=== PATIENT | female | born 1935 | race Caucasian/White ===

== ENCOUNTER 2016-11-30 15:24 | Outpatient (CLI) | payer OTHER ==
--- NOTE | 2016-11-30 15:51 | DIAGNOSTIC IMAGING REPORT ---
PROCEDURE: XR CHEST 2 VIEW INDICATION: COPD DISEASE, TOBACCO ABUSE TECHNIQUE: PA and lateral view. COMPARISON: None. FINDINGS: Mild hyperinflation. Lungs are clear. Heart size, mediastinum and pulmonary vessels are normal. Mildly tortuous aorta. Moderate degenerative changes of the spine. IMPRESSION: 1. Hyperinflation consistent with COPD 2. No acute changes
== END 2016-11-30 23:00 | disposition home or self-care (01) ==
LOC: XR SRH 15:24
DX: J44.9 Chronic obstructive pulmonary disease, unspecified (principal); Z72.0 Tobacco use